=== PATIENT | male | born 1980 | race Caucasian/White ===

== ENCOUNTER 2020-06-09 06:55 | Day surgery (SDC) | payer OTHER, SELFPAY ==
[~2020-06-09] VITALS: Ht 177.8 cm; Wt 80.7 kg
[2020-06-09] MEDS ORDERED: BUPIVACAINE-MPF/EPI 0.25% 10 ML VIAL INJ ONE (08:36)
[2020-06-09] MEDS ORDERED: LIDOCAINE 1% 500 MG/50 ML VIAL ONE (08:38)
[2020-06-09] MEDS ORDERED: fentaNYL citrate 0.05 MG/ML VIAL ONE (09:03)
[2020-06-09] MEDS ORDERED: MIDAZOLAM 2 MG/2 ML VIAL ONE (09:03)
[2020-06-09] MEDS ORDERED: DEXAMETHASONE 4 MG/ML VIAL ONE (09:03)
[2020-06-09] MEDS ORDERED: ONDANSETRON 4 MG/2 ML VIAL ONE (09:03)
[2020-06-09] MEDS ORDERED: KETOROLAC 30 MG/ML VIAL ONE (09:03)
[2020-06-09] MEDS ORDERED: LIDOCAINE 2% 100 MG/5 ML SYR IVP ONE (09:03)
[2020-06-09] MEDS ORDERED: SUCCINYLCHOLINE CHLORIDE 200 MG/10 ML VIAL IVP ONE (09:03)
[2020-06-09] MEDS ORDERED: SEVOFLURANE 250 ML BTL INH ONE (09:03)
[2020-06-09] MEDS ORDERED: ePHEDrine 50 MG/ML VIAL ONE (09:03)
[2020-06-09] MEDS ORDERED: PROPOFOL 200 MG/20 ML VIAL IV ONE (09:03)
[2020-06-09] MEDS ORDERED: HYDROmorphone 1 MG/ML AMP IVP PRN ×2 (09:30)
[2020-06-09] MEDS ORDERED: BLOOD GLUCOSE MONITORING 1 DEV DEV FS ONE (09:30)
[2020-06-09] MEDS ORDERED: MEPERIDINE 25 MG/ML SYR IVP PRN ×2 (09:30)
[2020-06-09] MEDS ORDERED: BLOOD GLUCOSE MONITORING 1 DEV DEV FS SCH (09:30)
[2020-06-09] MEDS ORDERED: diphenhydrAMINE 50 MG/ML VIAL IVP PRN (09:30)
[2020-06-09] MEDS ORDERED: NACL 0.9% 1,000 ML IV SCH ×2 (09:30)
[2020-06-09] MEDS ORDERED: ONDANSETRON 4 MG/2 ML VIAL IVP PRN ×2 (09:30)
== END 2020-06-09 11:30 | disposition home or self-care (01) ==
LOC: MDS 06:55 → MFCC 06:56 → MDS 11:30
DX: L72.3 Sebaceous cyst (principal); M67.432 Ganglion, left wrist; I10 Essential (primary) hypertension; E11.9 Type 2 diabetes mellitus without complications; F41.9 Anxiety disorder, unspecified; Z20.828 Contact with and (suspected) exposure to other viral communicable diseases
CPT/HCPCS: 11406; 25111; 71045; J0330; J0690; J1100; J1885; J2001; J2250; J2405; J2704; J3010; J3490; J7060; U0003; 82948